=== PATIENT | male | born 1930 | race Caucasian/White ===

== ENCOUNTER → 2017-04-06 | Outpatient (CLI) | payer MEDICARE, BC, OTHER ==
[~2017-04-06] MED LIST: ASPIRIN81 MG PO; BACTROBAN22 GM TOP; COUMADIN5 MG PO; HYTRIN5 M1 PO; PLAVIX PO; TIMOPTIC5 ML OD; XALATAN OU; ZANTAC150 MG PO; ZOCOR PO
[2017-04-06 09:13] LABS: HEMATOCRIT 39.7 % (38.0-50.0); HEMOGLOBIN 13.5 gm/dL (13.0-16.0); MEAN CELL VOLUME 90.7 FL (83-96); MEAN CORPUSCULAR HEMOGLOBIN 30.8 PG (28-34); MEAN PLATELET VOLUME 7.6 FL (6.5-11.5); RED BLOOD COUNT 4.37 X10e (3.90-5.60); RED CELL DISTRIBUTION WIDTH 12.5 % (11.0-15.5); WHITE BLOOD COUNT 6.4 X10e3 (4.0-10.5)
[2017-04-06 09:16] LABS: URINE APPEARANCE CLEAR; URINE BILIRUBIN NEG (NEG); URINE BLOOD NEG (NEG); URINE COLOR YELLOW; URINE GLUCOSE NEG (NORM); URINE KETONE NEG (NEG); URINE LEUKOCYTE ESTERASE NEG (NEG); URINE NITRATE NEG (NEG); URINE PROTEIN NEG (NEG); URINE SPECIFIC GRAVITY 1.015 (1.003-1.035); URINE UROBILINOGEN 0.2 MG/DL (NORM)
[2017-04-06 09:20] LABS: MICRO INDICATED? NO
[2017-04-06 09:32] LABS: ALBUMIN SERUM 3.9 g/dL (3.5-5.0); BILIRUBIN,TOTAL 0.7 mg/dL (0.2-2.0); CALCIUM SERUM 8.8 mg/dL (8.4-10.2); CREATININE SERUM 1.5 mg/dL (0.6-1.4); GLOM FILT RATE Estimated 41.9 mL/min (>60); MAGNESIUM 1.9 mg/dL (1.6-3.0); PHOSPHOROUS 3.2 mg/dL (2.5-4.6); POTASSIUM 4.5 mmol/L (3.5-5.1); PROTEIN TOTAL SERUM 6.7 g/dL (6.0-8.3)
[2017-04-06 11:15] LABS: CREATININE,RANDOM URINE 89 mg/dL; TOTAL PROTEIN,RANDOM URINE <10 mg/dl (<10)
[2017-04-09 11:08] LABS: CALCIUM (PTHINTACT) 9.1 mg/dL (8.6-10.3)
== END | disposition home or self-care (01) ==
LOC: SLAB 08:50
PROVIDERS: Internal Medicine Nephrology
DX: N18.3 Chronic kidney disease, stage 3 (moderate) (principal)
CPT/HCPCS: 36415; 80053; 81003; 82310; 82570; 83735; 83970; 84100; 84156; 85027

== ENCOUNTER → 2017-06-10 | Outpatient (CLI) | payer MEDICARE, BC, OTHER | END | disposition home or self-care (01) | LOC: SLAB 09:30 | DX: C61 Malignant neoplasm of prostate (principal) | CPT/HCPCS: 36415; G0103 ==